=== PATIENT | female | born 1970 | race Caucasian/White ===

== ENCOUNTER → 2017-05-21 | Outpatient (CLI) | payer OTHER | LOC: BMCIMAGING 11:47 | PROVIDERS: ATTEND Emergency Medicine | DX: S79.911A Unspecified injury of right hip, initial encounter (principal) ==

== ENCOUNTER 2017-05-23 05:51 | Emergency (ER) | payer OTHER ==
[2017-05-23 05:59] VITALS: BP 108/59; PULSE 59; RESP 16; TEMP 98.1; O2SAT 100
--- NOTE | 2017-05-23 06:00 | EDPHY ---
H & P Stated Complaint: RUQ/R flank pain Source: Patient - Personal History LMP (Females 10-55): 8-14 Days Ago Current Tetanus/Diphtheria Vaccine: Yes Current Tetanus Diphtheria and Acellular Pertussis (TDAP): Yes - Medical/Surgical History Hx Asthma: No Hx Chronic Respiratory Disease: No Hx Diabetes: No Hx Cardiac Disease: No Hx Renal Disease: No Hx Cirrhosis: No Hx Alcoholism: No Hx HIV/AIDS: No Hx Splenectomy or Spleen Trauma: No Other PMH: x 2 - Social History Smoking Status: Never smoked HPI/ROS: HPI CHIEF COMPLAINT: Abdominal pain HISTORY OF PRESENT ILLNESS: This patient is a 47-year-old female otherwise healthy no significant medical history. She reports 2 days ago on Saturday she was trail running and she fell she landed on a rock on her right hip. She states she fell rather hard. Denies any other areas of injury however has abrasions to her right thigh and hands. She states she landed directly on a rock on her right hip. He was rather a hard fall. She went to an urgent care after that she had some bruising to her right hip. She tells me she had x-ray there that was normal. She felt fine yesterday. She had a bowel movement yesterday. No vomiting. 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 Got up at 5:00 a.m.. And developed lower abdominal pain. She tells me this feels like gas. Time she tells me it feels like sharp pain. It is located mid abdomen lower as well as right lower quadrant. She denies any fever. Denies vomiting. Did endorse nausea this morning. Noticed no change in her urine. Currently it is 6/10 pain. It is worse when she goes to sit up or stand. Better when she lies flat. She denies being . Additionally she tells me that she did not have a bowel movement this morning. She has not had anything to eat. No passage of flatus this morning. Past Medical History: Denies medical history Past Surgical History: Denies surgical history Social History: Denies daily use of drugs alcohol tobacco products. Family History: Noncontributory ROS REVIEW OF SYSTEMS: A comprehensive 10 point review of systems is otherwise negative aside from elements mentioned in the history of present illness. Exam Constitutional triage nursing summary reviewed, vital signs reviewed, awake/ alert. Eyes normal conjunctivae and sclera, EOMI, PERRLA. HENT normal inspection, atraumatic, moist mucus membranes, no epistaxis, neck supple/ no meningismus, no raccoon eyes. Respiratory clear to auscultation bilaterally, normal breath sounds, no respiratory distress, no wheezing. Cardiovascular rate normal, regular rhythm, no murmur, no edema, distal pulses normal. Gastrointestinal no significant tenderness on exam, soft, non-tender, no rebound, no guarding, normal bowel sounds, no distension, no pulsatile mass. Genitourinary no CVA tenderness. Musculoskeletal ecchymosis over the right anterior superior iliac crest, no midline vertebral tenderness, full range of motion, no calf swelling, no tenderness of extremities, no meningismus, good pulses, neurovascularly intact. Skin pink, warm, & dry, no rash, skin atraumatic. Neurologic awake, alert and oriented x 3, AAOx3, moves all 4 extremities equally, motor intact, sensory intact, CN II-XII intact, normal cerebellar, normal vision, normal speech. Psychiatric normal mood/affect. Heme/Lymph/Immune no lymphadenopathy. Differential diagnosis includes but is not limited to and in no particular order : Bowel obstruction, appendicitis, gallbladder disease, diverticulitis, colitis , enteritis, perforated viscus, gastritis, GERD, esophagitis, urinary tract infection, pyelonephritis, kidney stones Medical Decision Making: Plan for this patient IV establishment, IV fluid bolus 1 L normal saline, IV Dilaudid 0.5 mg for pain control, 4 mg Zofran IV for does appear to check blood work, test. Will proceed with CT scan abdomen pelvis with IV contrast rule out significant acute intra-abdominal process including appendicitis or trauma. Re-evaluation: 0624AM: Patient declining pain medicine or nausea medicine. I-STAT creatinine shows cr 1.0 test pending. (Norberto Cole) Constitutional: Initial Vital Signs Temperature (C) 36.7 C 05/23/17 05:56 Heart Rate 59 L 05/23/17 05:56 Respiratory Rate 16 05/23/17 05:56 Blood Pressure 108/59 L 05/23/17 05:56 O2 Sat (%) 100 05/23/17 05:56 O2 Delivery Mode Room Air Allergies/Adverse Reactions: erythromycin base Allergy (Verified 01/21/15 15:05) Vomiting Home Medications: Medication Instructions Recorded Adrenotone 05/23/17 Medical Decision Making Other Provider: I assumed care of the patient at [address] Cole. I re-evaluated the patient after returning from her CT scan. The patient's CT scan demonstrates only some soft tissue stranding in the area of her bruise over the iliac crest. The patient does have incidentally noted gallstones. I evaluated the patient personally at 7:40 p.m.. The patient states her pain has resolved. The patient is certainly had a colicky component of right upper quadrant pain. I explained to her that this may represent cholelithiasis. The patient understands to return to the ED for protracted right upper quadrant pain , fever, vomiting or other concerns. Regarding the patient's abdominal trauma, there is no evidence of obvious intra-abdominal fluid, perforation, obstruction , renal or hepatic injury. The patient will be referred to our on-call general surgeon should she developed symptoms consistent with biliary colic. (Harrison Jensen) - Data Points Laboratory Results: Laboratory Results 05/23/17 06:15 05/23/17 06:15 05/23/17 05/23/17 05/23/17 06:15 06:15 06:15 WBC 11.15 10^3/uL H 10^3/uL (3.80-9.50) RBC 4.28 10^6/uL 10^6/uL (4.18-5.33) Hgb 13.5 g/dL g/dL (12.6-16.3) POC Hgb Hct 40.5 % % (38.0-47.0) POC Hct MCV 94.6 fL fL (81.5-99.8) MCH 31.5 pg pg (27.9-34.1) MCHC 33.3 g/dL g/dL (32.4-36.7) RDW 12.9 % % (11.5-15.2) Plt Count 315 10^3/uL 10^3/uL (150-400) MPV 9.6 fL fL (8.7-11.7) Neut % (Auto) 58.5 % % (39.3-74.2) Lymph % (Auto) 35.0 % % (15.0-45.0) [place] % (Auto) 5.4 % % (4.5-13.0) Eos % (Auto) 0.6 % % (0.6-7.6) Baso % (Auto) 0.2 % L % (0.3-1.7) Nucleat RBC Rel Count 0.0 % % (0.0-0.2) Absolute Neuts (auto) 6.53 10^3/uL H 10^3/uL (1.70-6.50) Absolute Lymphs (auto) 3.90 10^3/uL H 10^3/uL (1.00-3.00) Absolute Monos (auto) 0.60 10^3/uL 10^3/uL (0.30-0.80) Absolute Eos (auto) 0.07 10^3/uL 10^3/uL (0.03-0.40) Absolute Basos (auto) 0.02 10^3/uL 10^3/uL (0.02-0.10) Absolute Nucleated RBC 0.00 10^3/uL 10^3/uL (0-0.01) Immature Gran % 0.3 % % (0.0-1.1) Immature Gran # 0.03 10^3/uL 10^3/uL (0.00-0.10) POC Sodium Sodium 138 mEq/L mEq/L (134-144) POC Potassium Potassium 4.2 mEq/L mEq/L (3.5-5.2) POC Chloride Chloride 105 mEq/L mEq/L (97-110) Carbon Dioxide 23 mEq/l mEq/l (22-31) Anion Gap 10 mEq/L mEq/L (8-16) POC BUN BUN 15 mg/dL mg/dL (7-23) Creatinine 1.0 mg/dL mg/dL (0.6-1.0) POC Creatinine Estimated GFR 60 Glucose 107 mg/dL H mg/dL (70-100) POC Glucose Calcium 9.4 mg/dL mg/dL (8.5-10.4) Total Bilirubin 0.7 mg/dL mg/dL (0.1-1.4) Conjugated Bilirubin 0.2 mg/dL mg/dL (0.0-0.5) Unconjugated Bilirubin 0.5 mg/dL mg/dL (0.0-1.1) AST 19 IU/L IU/L (14-46) ALT 29 IU/L IU/L (9-52) Alkaline Phosphatase 64 IU/L IU/L (38-126) Total Protein 6.9 g/dL g/dL (6.3-8.2) Albumin 4.1 g/dL g/dL (3.5-5.0) Lipase 92 IU/L IU/L (23-300) Beta HCG, Qual NEGATIVE 05/23/17 06:13 WBC RBC Hgb POC Hgb 14.6 gm/dL gm/dL (12.6-16.3) Hct POC Hct 43 % % (38-47) MCV MCH MCHC RDW Plt Count MPV Neut % (Auto) Lymph % (Auto) [place] % (Auto) Eos % (Auto) Baso % (Auto) Nucleat RBC Rel Count Absolute Neuts (auto) Absolute Lymphs (auto) Absolute Monos (auto) Absolute Eos (auto) Absolute Basos (auto) Absolute Nucleated RBC Immature Gran % Immature Gran # POC Sodium 140 mEq/L mEq/L (134-144) Sodium POC Potassium 3.9 mEq/L mEq/L (3.3-5.0) Potassium POC Chloride 104 mEq/L mEq/L (97-110) Chloride Carbon Dioxide Anion Gap POC BUN 15 mg/dL mg/dL (7-23) BUN Creatinine POC Creatinine 1.0 mg/dL mg/dL (0.6-1.0) Estimated GFR Glucose POC Glucose 111 mg/dL H mg/dL (70-100) Calcium Total Bilirubin Conjugated Bilirubin Unconjugated Bilirubin AST ALT Alkaline Phosphatase Total Protein Albumin Lipase Beta HCG, Qual Point of Care Test Results: 05/23/17 06:13 POC Sodium 140 POC Potassium 3.9 POC Chloride 104 POC BUN 15 POC Creatinine 1.0 POC Glucose 111 H Departure - Departure Disposition: Home, Routine, Self-Care Clinical Impression: Pelvic contusion, Cholelithiasis Condition: Good Instructions: Gallstones (ED) Additional Instructions: 1. Take Ibuprofen or Motrin 600 mg by mouth three times a day. 2. Your CT scan does demonstrate evidence of gallstones which may be a possible etiology of the symptoms you experienced earlier today. If you continue to have symptoms of ongoing intermittent right upper quadrant pain I do recommend evaluation by the general surgeon you have been referred to. You should return to the ED immediately for any more severe symptoms, intractable pain, fever or vomiting as this may be the sign of a more serious conditions such as a gallbladder infection. Regarding your abdominal trauma, there is no evidence of an obvious intra-abdominal injury noted on the CT scan today. Referrals: Norberto Avitia MD [Medical Doctor] - As per Instructions
[2017-05-23] MEDS ORDERED: HYDROmorphONE/DILAUDID 1 MG/ML INJ IVP ONE (06:07)
[2017-05-23] MEDS ORDERED: NS 1,000 ML IV ONE (06:07)
[2017-05-23] MEDS ORDERED: ONDANSETRON 4 MG/2 ML VIAL IVP ONE (06:07)
[2017-05-23 06:31] LABS: % IMMATURE GRANULYOCYTES 0.3 % (0.0-1.1); ABSOLUTE IMMATURE GRANULOCYTES 0.03 10^3/uL (0.00-0.10); ADD DIFF? NO; ADD MORPH? NO; ADD SCAN? NO; ATYPICAL LYMPHOCYTE FLAG 0 (0-99); FRAGMENT RBC FLAG 0 (0-99); HEMATOCRIT 40.5 % (38.0-47.0); HEMOGLOBIN 13.5 g/dL (12.6-16.3); LEFT SHIFT FLG 0 (0-99); LIPEMIA HEMOLYSIS FLAG 80 (0-99); MEAN CELL HEMOGLOBIN 31.5 pg (27.9-34.1); MEAN CELL HEMOGLOBIN CONCENTR. 33.3 g/dL (32.4-36.7); MEAN CELL VOLUME 94.6 fL (81.5-99.8); MEAN PLATELET VOLUME 9.6 fL (8.7-11.7); PLATELET CLUMPS FLAG 10 (0-99); PLATELET COUNT 315 10^3/uL (150-400); RED BLOOD CELL COUNT 4.28 10^6/uL (4.18-5.33); RED CELL DISTRIBUTION WIDTH 12.9 % (11.5-15.2)
[2017-05-23] MEDS ORDERED: IOPAMIDOL (ISOVUE-300) 100 ML BTL ONE (06:32)
[2017-05-23 06:49] LABS: ALANINE AMINOTRANSFERASE 29 IU/L (9-52); ALBUMIN 4.1 g/dL (3.5-5.0); ALKALINE PHOSPHATASE 64 IU/L (38-126); ANION GAP 10 mEq/L (8-16); ASPARTATE AMINOTRANSFERASE 19 IU/L (14-46); BILIRUBIN,TOTAL 0.7 mg/dL (0.1-1.4); BILIRUBIN-CONJUGATED 0.2 mg/dL (0.0-0.5); BILIRUBIN-UNCONJUGATED 0.5 mg/dL (0.0-1.1); CALCIUM 9.4 mg/dL (8.5-10.4); CARBON DIOXIDE 23 mEq/l (22-31); CHLORIDE 105 mEq/L (97-110); GLOMERULAR FILTRATION RATE 60; GLUCOSE 107 mg/dL (70-100); POTASSIUM 4.2 mEq/L (3.5-5.2); SODIUM 138 mEq/L (134-144); TOTAL PROTEIN 6.9 g/dL (6.3-8.2)
== END 2017-05-23 07:47 | disposition home or self-care (01) ==
DX: S30.0XXA Contusion of lower back and pelvis, initial encounter (principal); K80.70 Calculus of gallbladder and bile duct without cholecystitis without obstruction; W19.XXXA Unspecified fall, initial encounter; Y99.8 Other external cause status; Y93.02 Activity, running
CPT/HCPCS: 82947-QW; Q9967

== ENCOUNTER → 2017-06-25 | Outpatient (CLI) | payer OTHER | LOC: CIMAGING 15:51 | PROVIDERS: ATTEND Obstetrics & Gynecology | DX: R93.8 Abnormal findings on diagnostic imaging of other specified body structures (principal); D25.2 Subserosal leiomyoma of uterus; N83.202 Unspecified ovarian cyst, left side | CPT/HCPCS: 76856-PO ==

== ENCOUNTER → 2017-08-08 | Outpatient (CLI) | payer OTHER | LOC: FIMAGING 10:21 | PROVIDERS: ATTEND Obstetrics & Gynecology | DX: Z12.31 Encounter for screening mammogram for malignant neoplasm of breast (principal) | CPT/HCPCS: G0202 ==